=== PATIENT | female | born 1955 | race Hispanic/Latino ===

== ENCOUNTER 2021-07-06 | Outpatient (CLI) | payer BC, MEDICARE | END 2021-07-06 00:01 | disposition home or self-care (01) | LOC: LAB | PROVIDERS: ATTEND Obstetrics & Gynecology | DX: Z01.419 Encounter for gynecological examination (general) (routine) without abnormal findings (principal); Z11.51 Encounter for screening for human papillomavirus (HPV) | CPT/HCPCS: 36415 ==